=== PATIENT | female | born 1995 | race Hispanic/Latino ===

== ENCOUNTER 2021-03-24 04:08 | Inpatient (IN) | payer OTHER, SELFPAY ==
--- OUTSIDE RECORDS SUMMARY | 2021-03-24 04:11 | XMS REPORT | Continuity of Care Document ---
:1995 Author Organization [facility] t Address [address] [place] [address] Care Team Providers Name Role Phone Doctor Unassigned, Name Attending Clinician Unavailable Thelma Moreno Attending Clinician Lab/Pedi Attending Clinician Unavailable 1, Room Attending Clinician Unavailable Problems This patient has no known problems. Allergies, Adverse Reactions, Alerts This patient has no known allergies or adverse reactions. Medications This patient has no known medications. Procedures This patient has no known procedures. Encounters Start End Encounter Admission Attending Care Care Encounter Source Date/Time Date/Time Type Type Clinicians Facility Department ID 2020-10-20 2020-10-20 Orders Doctor JORGE [id number] 00:00:00 00:00:00 Only Unassigned, FANNIE 350.1.13.10 [place] [facility] [id number] [id number] 2020-09-23 2020-09-23 Abstract Jennifer [facility] [id number] 00:00:00 00:00:00 Neda Renee [employer] REPRESENTATIVE [id number] [facility] 4.2.7.2.686 MATERNAL [id number] & CHILD [address] [place] [address] 2020-09-22 2020-09-22 [facility] Home Director Lab/PedJADA calderón [id number] 13:26:50 14:39:[facility] REPRESENTATIVE [id number] [facility] 4.2.7.2.686 MATERNAL [id number] & CHILD 125 [facility] 2020-09-22 2020-09-22 Funeral Home Director 1, Em [facility] [id number] 13:26:04 14:11:04 Visit Room [employer] FIELD REPRESENTATIVE [id number] REGIONAL 4.2.7.2.686 MATERNAL [id number] & CHILD 369 [facility] 2020-09-21 2020-09-21 Initial [place], [facility] [id number] 13:13:23 14:07:55 Neda C MOTOR VEHIC[employer] FIELD REPRESENTATIVE [id number] Visit [facility] 4.2.7.2.686 MATERNAL [id number] & CHILD 107 [facility] 2020-09-21 2020-09-21 Orders Doctor JORGE [id number] 00:00:00 00:00:00 Only Unassigned, FANNIE 350.1.13.10 [place] [facility] 4.2.7.2.686 [id number] Results This patient has no known results.
[2021-03-24] MEDS ORDERED: Ringers Lactate 1,000 ML IV PRN (04:29)
[2021-03-24] MEDS ORDERED: CARBOPROST TROME 250 MCG/ML IM PRN (04:29)
[2021-03-24] MEDS ORDERED: METHYLERGONOVINE 0.2MG/ML AMP IM PRN (04:29)
[2021-03-24] MEDS ORDERED: MEPERIDINE HCL 25 MG/ML SYR IV PRN (04:29)
[2021-03-24] MEDS ORDERED: PROMETHAZINE INJ 25 MG/ML AMP IM PRN (04:29)
[2021-03-24] MEDS ORDERED: BUTORPHANOL 1 MG/ML INJ IV PRN (04:29)
[2021-03-24] MEDS ORDERED: Ringers Lactate 1,000 ML IV SCH (05:00)
[2021-03-24] MEDS ORDERED: OXYTOCIN/LR 20 UNIT/1,000 ML BAG IV SCH (05:00)
[2021-03-24 05:24] LABS: Urine Appearance CLEAR (Clear); Urine Bilirubin NEGATIVE (Negative); Urine Blood NEGATIVE (Negative); Urine Color DK YELLOW (Yellow); Urine Glucose NEGATIVE (Negative); Urine Protein 2+ (Negative); Urine Specific Gravity 1.025 (1.005-1.030)
[2021-03-24 05:24] LABS: Absolute Lymphocytes (CBC) 1.7 K/uL (0.7-4.9); Basophils % 0.7 % (0-1.3); Lymphocytes % 16.7 % (15.3-44.8); MPV 9.5 fL (7.6-11.3); RBC Red Blood Cell Count 3.76 M/uL (3.86-4.86)
[2021-03-24 05:27] LABS: Urine Microscopic Reflex ORDER UMIC
[2021-03-24 05:32] VITALS: BMI 31.6
[2021-03-24 05:48] LABS: Urine Bacteria <20 /HPF (<20); Urine Mucus 2+ /HPF (NONE SEEN); Urine RBC <5 /HPF (NONE SEEN)
[2021-03-24 08:06] LABS: Urine Appearance CLEAR (Clear); Urine Bilirubin NEGATIVE (Negative); Urine Blood NEGATIVE (Negative); Urine Color YELLOW (Yellow); Urine Glucose NEGATIVE (Negative); Urine Protein 1+ (Negative); Urine Specific Gravity <=1.005 (1.005-1.030)
[2021-03-24 08:14] LABS: Urine Bacteria NONE SEEN /HPF (<20); Urine RBC NONE SEEN /HPF (NONE SEEN)
[2021-03-24] MEDS ORDERED: MAGNESIUM SULF/STERILE WATER 1,000 ML IV SCH (09:00)
[2021-03-24] MEDS ORDERED: LIDOCAINE 1% MPF 30 ML VIAL ONE (10:17)
[2021-03-24] MEDS ORDERED: DOCUSATE NA/SENNA CONC 1 TAB PO PRN (10:27)
[2021-03-24] MEDS ORDERED: Oxycodone HCl/Acetaminophen 1 TAB TAB PO PRN ×2 (10:27)
[2021-03-24] MEDS ORDERED: DIPHENHYDRAMINE 25 MG TAB/CAP PO PRN (10:27)
[2021-03-24] MEDS ORDERED: BISACODYL 10 MG RECTAL SUPP PR PRN (10:27)
[2021-03-24] MEDS ORDERED: ACETAMINOPHEN 500 MG TAB PO PRN (10:27)
[2021-03-24] MEDS ORDERED: IBUPROFEN 200 MG TAB PO PRN (10:27)
[2021-03-24] MEDS ORDERED: OXYTOCIN/LR 20 UNITS/1,000 ML BAG IV SCH (11:00)
[2021-03-24] MEDS: PHENOBARBITAL 32.4 MG TABLET PO SCH ×3 (11:50→23:30)
--- NOTE | 2021-03-24 12:13 | PREOPHP ---
Date of Admission: 03/24/2021 History Of Present Illness: A 25-year-old primigravida at 39 weeks and 3 days for labor induction. Pros and cons of this thoroughly discussed prior to admission. Family History: Father with diabetes. Otherwise negative family history. Past Medical History: No serious illnesses. Past Surgical History: No surgeries. Allergies: NO ALLERGIES. Medications: vitamins prior to admission. Social History: Does not smoke. Physical Examination: HEENT: Clear. Pupils equal, round, reactive to light and accommodation. Conjunctivae well perfused . No oral, lingual, or buccal lesions. Chest: Clear. Heart: Without murmurs, thrills, heaves, or rubs. Abdomen: Term size. Extremities: Clear. There is no edema and she has normal reflexes. However, since admission, her b lood pressures have been running 140-150 range systolic, 90 range diastolic. Diagnostic Data: Initial urine was +2 protein. Assessment And Plan: We will get a catheterized specimen. Catheterized specimen shows protein. We will start magnesium sulfate. This has been explained to the patient. Anticipate delivery sometime later today. Labor talk given. The patient is Rh positive, immune to rubella, negative strep, negat conor COVID. NBC/MODL Voice ID: [id number]
--- NOTE | 2021-03-24 13:43 | PN ---
The patient received Stadol IV, Phenergan IM, then went rapidly to complete. She is pushing at this point. There are some mild decelerations. Baby still has good variability. She was started on magn esium sulfate, and magnesium sulfate has been discontinued and disconnected. The Fernandez catheter has been removed so she can push more effectively. Anticipate delivery sometime relatively soon. GLENNY/ZELDA Voice ID: [id number] Report ID: [id number]
--- NOTE | 2021-03-24 14:57 | OP ---
Surgeon: Hay Santos MD Indications And Procedure In Detail: A 25-year-old, primigravida, 39 weeks 3 days, 3 cm this morning . Rupture of membranes, clear fluid. Stadol 1 mg IV, Phenergan 25 mg IM. After achieving 4-5 cm, t he patient went rapidly to complete second stage of about 20-30 minutes. Spontaneous vaginal deliver y of an estimated 7-pound female, Apgars 9 and 9. Two small first-degree lacerations, 1 involving th e right labia minora. Five running locked stitches of 2-0 chromic, 1 to the patient's left of the in troitus, 2 to 3 stitches 2-0 chromic. Schultze delivery of the placenta. Eccentric location of the cord, but otherwise normal and intact. 350 to 400 mL blood loss. Magnesium sulfate will be disconti nued as the patient's blood pressure is now in the 130 range and she never had hyperreflexia nor did she have any edema. We will start her on phenobarbital every 6 hours. Final Diagnoses: Term intrauterine ; mild preeclampsia, resolving at this point; vaginal de livery. GLENNY/ZELDA Voice ID: [id number] Report ID: [id number]
[2021-03-25 01:09] LABS: RPR (Rapid Plasma Reagin) NON-REACT (NON-REACT)
[2021-03-25 07:48] VITALS: BP 131/85; TEMP 97.2
[2021-03-25] MEDS: PHENOBARBITAL 32.4 MG TABLET PO SCH (11:11)
--- NOTE | 2021-03-25 11:29 | DS ---
Hospital Course: This is a 25-year-old, primigravida, 39 weeks and 3 days. Delivered of an estimate d 7-pound female, Apgars 9 and 9. Small first-degree laceration x2, repaired with 2-0 chromic under local infiltration. Schultze delivery of the placenta. Estimated blood loss 350 mL. Placenta inspe cted and noted to be intact and normal. During the labor, the patient had elevated blood pressure, + 1 protein. Really did not have any edema whatsoever and normal reflexes. She was started on magnesi um sulfate and continued on this until the time of delivery. , blood pressures moderated a nd she was put on phenobarbital. She will be dismissed with phenobarbital to be taken 3 times a day for an additional 3 days. She is to report back to the office in 6 weeks for followup to report any temperature elevation of 100 degrees or greater, severe pain, heavy bleeding, or any other type of ab normalities. She requests no analgesics. She has had her Tdap immunization during the . L ast blood pressure at 0645 this morning 131/82. No complaints or problems noted by the patient this morning. Final Diagnoses: Term intrauterine 39 weeks 3 days, labor induction, vaginal delivery, pre eclampsia - mild. Dismissed with phenobarbital. GLENNY/MODL Voice ID: [id number] Report ID: [id number]
[2021-03-26 15:14] LABS: HBsAG Nonreactive (Nonreactive)
== END 2021-03-25 12:10 | disposition home or self-care (01) | DRG 807 ==
LOC: 2ND-WC 04:08
PROVIDERS: ADMIT Specialist; ATTEND Specialist
PROC: 10E0XZZ Delivery of Products of Conception, External Approach (ICD-10-PCS; principal; 2021-03-24)
PROC: 0HQ9XZZ Repair Perineum Skin, External Approach (ICD-10-PCS; 2021-03-24)
PROC: 10907ZC Drainage of Amniotic Fluid, Therapeutic from Products of Conception, Via Natural or Artificial Opening (ICD-10-PCS; 2021-03-24)
PROC: 3E033VJ Introduction of Other Hormone into Peripheral Vein, Percutaneous Approach (ICD-10-PCS; 2021-03-24)
DX: O14.04 Mild to moderate pre-eclampsia, complicating childbirth (principal); Z37.0 Single live birth; O70.0 First degree perineal laceration during delivery; Z3A.39 39 weeks gestation of pregnancy; Z20.822 Contact with and (suspected) exposure to COVID-19
CPT/HCPCS: 36415; 81001; 81003; 81015; 85025; 86592; 87340; J0595; J2210; J2550; J2590; J3475; J7120; U0003